=== PATIENT | female | born 1990 | race Caucasian/White ===

== ENCOUNTER 2022-12-27 09:57 | Outpatient (CLI) | payer OTHER ==
[2022-12-27 11:07] VITALS: BP 113/57; PULSE 118; RESP 14; TEMP 98.1
--- NOTE | 2023-01-03 09:27 | P.MSEPDOC ---
Presenting Problems - Arrival Data Date of Arrival on Unit: 12/27/22 Time of Arrival on Unit: 10:00 Mode of Transport: Wheelchair - Complaint OB-Reason for Admission/Chief Complaint: Other Comment: LEFT LABIAL SWELLING WITH PAIN Medical History - Information : 2 Para: 1 Term: 1 : 0 Abortions: Spontaneous or Elective: 0 Number of Living Children: 1 - Gestational Age Gestational Age by KRISTEN (wks/days): 20 Weeks and 2 Days Review of Systems - Review of Systems Constitutional: No problems Breast: No problems ENT: No problems Cardiovascular: No problems Respiratory: No problems Gastrointestinal: No problems Genitourinary: No problems Musculoskeletal: No problems Neurological: No problems Skin: No problems Vital Signs - Temperature Temperature: 98.1 F Temperature Source: Temporal Artery Scan - Pulse Left Brachial Pulse Rate: 118 Pulse Assessment Method: Automatic Cuff - Respirations Respiratory Rate: 14 Oxygen Delivery Method: Room Air - Blood Pressure Left Arm Blood Pressure: 113/57 Blood Pressure Mean: 75 Blood Pressure Source: Automatic Cuff Physician Notification - Physician Notified Physician Notified Date: 12/27/22 Physician Notified Time: 10:32 Physician: Gracie Gotti Order Received: Yes - Notification Comment Comment: pt may be discharged and follow up with own dr for drainage of cyst Maternal Triage Index - Maternal Triage Index Presenting for scheduled procedure w/no complaint: No - Stat/Priority 1 Stat Priority 1: No - Urgent/Priority 2 Urgent Priority 2: No - Prompt/Priority 3 Prompt Priority 3: No - Non-Urgent/Priority 4 Non-Urgent Priority 4: Yes Criteria Met for Priority 4: left labial swelling and pain Disposition - Disposition OB Disposition: Discharge to home Discharge Date: 12/27/22 Discharge Time: 10:50 I agree with the RN Medical Screening Exam: Yes Case reviewed; plan agreed upon as documented in EMR&OBIX.: Yes Comments: Pt to follow up with her established OB as outpatient for I&D of bartholins cyst. Diagnosis: bartholin's cyst in
== END 2022-12-27 10:50 | disposition home or self-care (01) ==
LOC: FBPOP 09:57
PROVIDERS: ATTEND Obstetrics & Gynecology
DX: O34.82 Maternal care for other abnormalities of pelvic organs, second trimester (principal); Z3A.20 20 weeks gestation of pregnancy
CPT/HCPCS: 99213

== ENCOUNTER → 2023-05-05 | Outpatient (CLI) | payer OTHER ==
--- NOTE | 2023-05-05 20:47 | US ---
EXAMINATION TYPE: US OB >= 14 wk fetus DATE OF EXAM: 05/05/2023 COMPARISON: None CLINICAL INDICATION: Female, 32 years old with history of Z34.90 ENCNTR FOR SUPRVSN OF NORMAL PREGNAN CY, UNS; Growth TECHNIQUE: Transabdominal (TA) GESTATIONAL AGE / DATING Physician Established: (38 weeks/5 days) EDC: 05/14/2023 Dates by LMP: (38 weeks/5 days) EDC: 05/14/2023 Dates by First Scan: first scan not done at this facility Dates by Current Scan: (36 weeks/5 days) EDC: 05/28/2023 Beta HCG (if available): Not available at this time SURVEY IUP: Single PLACENTA: Anterior PREVIA: No Previa BC: 12.5 cm Normal CERVICAL LENGTH (transabdominal: norm > 3.0cm): 3.4 cm BIOMETRY PRESENTATION: Vertex LIE: Longitudinal BPD: 9.6 cm 39 weeks / 1 days HC: 34.5 cm 39 weeks / 6 days AC: 34.04 cm 38 weeks / 0 days FL: 6.6 cm 34 weeks / 0 days ESTIMATED WEIGHT IN GRAMS: 3193 grams ESTIMATED WEIGHT IN LBS/OZ: 7 lbs. 1 oz. WEIGHT PERCENTAGE BASED ON ESTABLISHED DATES: 33.2% HC/AC: 1.01 Normal FL/AC: 19.4 HEART RATE: 130 bpm RHYTHM: Normal IMPRESSION: 1. Single intrauterine gestation estimated at 36 weeks 5 days gestation. Cardiac activity measures 13 0 bpm. 2. Abnormal ratios with the femur length to abdominal circumference, head circumference, biparietal d iameter present with diminished ratios.
== END | disposition home or self-care (01) ==
LOC: RADUSWWP 12:32
PROVIDERS: ATTEND Obstetrics & Gynecology
DX: Z34.90 Encounter for supervision of normal pregnancy, unspecified, unspecified trimester (principal); Z3A.36 36 weeks gestation of pregnancy
CPT/HCPCS: 76805